=== PATIENT | male | born 1965 | race Caucasian/White ===

== ENCOUNTER → 2018-08-01 | Outpatient (CLI) | payer OTHER ==
[~2018-08-01] MED LIST: ACETAMINOPHEN325 M1 PO; ALLOPURINOL 30300 M1 PO; BAYER CHEWABLE81 MG PO; CARVEDILOL12.5 MG PO; CARVEDILOL6.25 MG PO; CITRUCEL500 MG PO; DICLOFENAC SOD50 MG PO; DICLOFENAC SODI75 MG PO; FENOFIBRATE160 MG PO; FIBER0.52 G1 PO; FIBER0.52 GM PO; HYDROCODON-ACE1 EAC8 PO; LISINOPRIL10 MG PO; LOVAZA1000 MG PO; METFORMIN HCL500 MG PO; NEURONTIN 300300 M1 PO; NIASPAN ER 101000 M1 PO; NORCO 5-325 TA1 EACH PO; PERCOCET 5-3251 EACH PO; SIMVASTATIN10 MG PO; TAMSULOSIN HCL0.4 M1 PO; TRAMADOL 50 MG50 MG PO; UNICOMPLEX M TA1 TA1 PO; XARELTO15 MG PO; XARELTO20 MG PO; ZANAFLEX4 MG PO; ZOFRAN ODT4 MG PO; ZOFRAN4 MG PO
[2018-08-01 12:24] VITALS: BP 143/89
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
== END ==
LOC: OPONC 12:11
DX: E86.0 Dehydration (principal)
CPT/HCPCS: 95000; 95001

== ENCOUNTER → 2020-07-20 | Outpatient (CLI) | payer OTHER | LOC: SJCVCIMAG 09:21 | PROVIDERS: ATTEND Internal Medicine Cardiovascular Disease | DX: I08.8 Other rheumatic multiple valve diseases (principal); I25.10 Atherosclerotic heart disease of native coronary artery without angina pectoris; I10 Essential (primary) hypertension; Z86.711 Personal history of pulmonary embolism ==